=== PATIENT | female | born 1980 | race Two or more races ===

== ENCOUNTER 2016-10-21 22:50 | Emergency (ER) | payer OTHER ==
[2016-10-21 23:08] VITALS: BP 122/72; TEMP 98.2; O2SAT 97
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
[2016-10-22 02:03] VITALS: PULSE 82; RESP 16
== END 2016-10-22 02:01 | disposition home or self-care (01) ==
LOC: EDUNIT# → EDSEX → EDAGE
DX: S39.92XA Unspecified injury of lower back, initial encounter (principal); V49.49XA Driver injured in collision with other motor vehicles in traffic accident, initial encounter; Y92.410 Unspecified street and highway as the place of occurrence of the external cause; Y99.8 Other external cause status; Y93.89 Activity, other specified